=== PATIENT | male | born 1940 | race Caucasian/White ===

== ENCOUNTER → 2016-12-20 | Outpatient (CLI) | payer BC ==
[~2016-12-20] MED LIST: ASCO500T16 PO; ASPI81TA28 PO; ATEN50TA8 PO; CHOL400C7 PO; CYAN100T6 PO; HYDR-3419 PO
[2016-12-20 11:17] LABS: ALT/SGPT 29 U/L (12-78); BASO % 0.3 %; BASO ABS # 0.02 K/uL (0-0.2); BLOOD UREA NITROGEN 15 mg/dl (7-18); BUN/CREATININE RATIO 16.8 (10-20); CARBON DIOXIDE 25 mmol/L (21-32); CHLORIDE 109 mmol/L (98-107); CHOLESTEROL 181 mg/dl (0-200); COMPLETE YES; CREATININE 0.91 mg/dl (0.60-1.40); EOS % 1.6 %; GLUCOSE 102 mg/dl (70-99); HEMATOCRIT 42.9 % (42-52); IG% 0.3 %; LYMPH % 24.7 %; MEAN CELL VOLUME 90.9 fL (80-100); MEAN CORPUSCULAR HEMOGLOBIN 31.4 pg (25-34); MEAN CORPUSCULAR HGB CONC 34.5 g/dl (32-36); MEAN PLATELET VOLUME 9.8 fL (7.4-10.4); MONO % 9.8 %; NEUT % 63.3 %; PLATELET COUNT 202 K/uL (130-400); POTASSIUM 4.3 mmol/L (3.5-5.1); RED BLOOD COUNT 4.72 M/uL (4.7-6.1); SODIUM 141 mmol/L (136-145); WHITE BLOOD COUNT 7.28 K/uL (4.8-10.8)
[2016-12-20 11:21] LABS: ALB/GLOB RATIO 1.2 (0.9-2); ALKALINE PHOSPHATASE 79 U/L (45-117); AST/SGOT 17 U/L (15-37); CHOLESTEROL/HDL RATIO 3.5; HDL CHOLESTEROL 51 mg/dl; LDL CHOLESTEROL CALCULATED 92 mg/dl; TRIGLYCERIDES 191 mg/dl (0-150); VERY LOW DENSITY LIPOPROT CALC 38 mg/dl
== END | disposition home or self-care (01) ==
LOC: C.LABBC 08:59
PROVIDERS: ATTEND Family Medicine
DX: I10 Essential (primary) hypertension (principal); E78.5 Hyperlipidemia, unspecified; Z13.0 Encounter for screening for diseases of the blood and blood-forming organs and certain disorders involving the immune mechanism

== ENCOUNTER 2022-09-29 08:03 | Inpatient (IN) ==
--- NOTE | 2022-09-29 08:33 | Emergency Department Note ---
History of Present Illness General Chief complaint: TIA Symptoms Stated complaint: POSSIBLE MINI STROKE Time Seen by Provider: 09/29/22 08:14 Source: patient and family ( who is at the bedside) Mode of arrival: ambulatory Limitations: no limitations History of Present Illness This patient is an 81-year-old male who comes in after having episode yesterday morning where he felt a little dizzy and woozy he said he is he had a mild heada medardo his hearing and vision felt off it last about 30 minutes it was both eyes. He had no focal numbness or weakness. It occurred after he stood up. He feels fine since then but his was concerned so she brought him in here today. He had no chest pain or shortness of breath he has had no recurrence of symptoms. No trouble walking or speaking. No history of any similar. he is on no blood t hinners no blood or melena in his stool Home Medications Medication Instructions Recorded Confirmed Type ASCORBIC ACID 500 mg PO DAILY #0 tabs 09/12/13 History ASPIRIN (ASPIRIN EC) 81 mg PO DAILY ##0 09/12/13 09/29/22 History Atenolol (Tenormin) 50 mg PO DAILY #0 tabs 09/12/13 09/29/22 History CHOLECALCIFEROL (VITAMIN D 400 IU) 400 inter.unit PO DAILY #0 caps 09/12/13 History CYANOCOBALAMIN (VITAMIN B12 100 100 mcg PO DAILY #0 tabs 09/12/13 History MCG) Hydrocodon/Acetaminophen 5MG/300MG 1 - 2 tabs PO Q4H PRN Pain #30 tabs 09/12/13 Rx (VICODIN (5MG/300MG)) latanoprost 0.005 % eye drops 1 drp ophthalmic (eye) DAILY 09/29/22 09/29/22 History glaucoma lisinopril 10 mg tablet 10 mg PO DAILY 09/29/22 09/29/22 History Allergies Allergy/AdvReac Type Severity Reaction Status Date / Time No Known Allergies Allergy Unverified 09/12/13 07:20 Past Med/Surg History Medical History (Updated 09/29/22 @ 15:04 by Richard Menendez MD) Basal cell carcinoma Cataract Facial swelling Kidney stone Periapical abscess Social History Smoking Status: Former smoker Preferred Language: Tuvaluan Feels Safe at Home: Yes Immunizations: Past medical history he is very healthy he does take atenolol for hypertension denies history of cardiac disease diabetes or stroke/TIA Social historydoes not smoke. He is followed by Dr. Chu Review of Systems A total of 10 systems reviewed and were otherwise negative Physical Exam Vital Signs Vital Signs - 24 hr 09/29/22 08:05 09/29/22 09:00 09/29/22 09:00 Temperature 36.2 C L Temperature Source Temporal Artery Scan Pulse Rate 58 L 46 L Pulse Rate from SpO2 Sensor 50 L Respiratory Rate 16 14 Respiratory Depth Normal Blood Pressure 200/88 H 147/89 H Blood Pressure Mean 125 108 Blood Pressure Position Sitting Pulse Oximetry 97 97 Oxygen Delivery Method Room Air Sepsis Recent Fever Within 48 Hours No Sepsis New/Unexplained Change in Mental Status No Sepsis Action Taken by Nursing No Action Required 09/29/22 10:53 09/29/22 10:54 09/29/22 10:54 Temperature Temperature Source Pulse Rate 64 51 L Pulse Rate from SpO2 Sensor 58 L 51 L Respiratory Rate 23 16 Respiratory Depth Blood Pressure 177/90 H Blood Pressure Mean 119 Blood Pressure Position Pulse Oximetry 96 97 Oxygen Delivery Method Sepsis Recent Fever Within 48 Hours Sepsis New/Unexplained Change in Mental Status Sepsis Action Taken by Nursing 09/29/22 11:00 09/29/22 11:00 09/29/22 11:30 Temperature Temperature Source Pulse Rate 50 L Pulse Rate from SpO2 Sensor 51 L Respiratory Rate 16 Respiratory Depth Blood Pressure 152/80 H 142/76 H Blood Pressure Mean 104 98 Blood Pressure Position Pulse Oximetry 99 Oxygen Delivery Method Sepsis Recent Fever Within 48 Hours Sepsis New/Unexplained Change in Mental Status Sepsis Action Taken by Nursing 09/29/22 11:30 09/29/22 12:01 09/29/22 12:01 Temperature Temperature Source Pulse Rate 49 L 51 L Pulse Rate from SpO2 Sensor 49 L 51 L Respiratory Rate 13 16 Respiratory Depth Blood Pressure 179/83 H Blood Pressure Mean 115 Blood Pressure Position Pulse Oximetry 98 98 Oxygen Delivery Method Sepsis Recent Fever Within 48 Hours Sepsis New/Unexplained Change in Mental Status Sepsis Action Taken by Nursing General: Well developed well nourished older male who appears younger than stated age and in no acute distress, breathing comfortably on room air. Normal s peech HEENT: Normal cephalic atraumatic. Pupils are equal round and reactive to light. Extraocular movements are intact. Oropharynx is pink with moist mucous membranes. No swelling of the mouth lips or tongue. Neck: Supple with a midline trachea. No meningeal signs or stiffness, no JVD or bruits. No Stridor. Chest: Clear to auscultation bilaterally. No wheezes or rhonchi. No increased work of breathing. Heart: Regular rate and rhythm without murmurs or gallops. Abdomen: Soft nontender, nondistended without rebound guarding or rigidity. Extremities: No cyanosis clubbing or edema. No calf tenderness or assymetry Spine/Back. Non tender to palpation. No CVA tenderness Skin: Good turgor without rashes. Neurologic exam: Cranial nerves two through 12 are intact. Motor and sensation are intact and symmetrical throughout. Course Administered Medications Discontinued Medications Aspirin (Aspirin 81 Mg Ectab) 162 mg PO NOW STA Stop: 09/29/22 12:57 Last Admin: 09/29/22 13:06 Dose: 162 mg Documented By: JILL Clopidogrel Bisulfate (Clopidogrel Bisulfate 300 Mg Tab) 300 mg PO NOW ONE Stop: 09/29/22 12:29 Last Admin: 09/29/22 12:42 Dose: 300 mg Documented By: JILL Ioversol (Optiray 350 100ml) 118 ml IV ONCE ONE Stop: 09/29/22 11:04 Last Admin: 09/29/22 11:03 Dose: 118 ml Documented By: MABEL Medical Decision Making Differential Diagnosis TIA, vasovagal episode, arrhythmia, electrolyte or metabolic abnormality, central neurologic process, anemia, infection, vertigo, dizziness Medical Records Attestation: I reviewed the patient's medical records. Home Medications Current Medication List: was personally reviewed by me Laboratory Data Attestation: I reviewed the patient's lab results. Result diagrams: 09/29/22 08:49 09/29/22 08:49 Lab Results 09/29/22 09/29/22 09/29/22 Range/Units 08:49 08:49 08:49 WBC 7.65 (4.8-10.8) K/ul RBC 4.75 (4.63-6.08) M/uL Hgb 14.3 (14.0-18.0) g/dl Hct 43.0 (40.1-51.0) % MCV 90.5 (80.0-100.0) fL MCH 30.1 (25.0-34.0) pg MCHC 33.3 (32.0-36.0) g/dL RDW Std Deviation 43.8 (36.4-46.3) fL RDW Coeff of Leslie 13.2 (11.5-14.5) % Plt Count 225 (130-400) K/uL MPV 10.2 (9.4-12.4) fL Immature Gran % (Auto) 0.1 % Neut % (Auto) 66.6 % Lymph % (Auto) 23.9 % [place] % (Auto) 7.6 % Eos % (Auto) 1.3 % Baso % (Auto) 0.5 % Neut # (Auto) 5.09 (1.4-6.5) K/uL Lymph # (Auto) 1.83 (1.2-3.4) K/uL [place] # (Auto) 0.58 (0.24-0.82) K/uL Eos # (Auto) 0.10 (0-0.50) K/uL Baso # (Auto) 0.04 (0-0.2) K/uL Immature Gran # (Auto) 0.01 (0.00-0.02) K/uL PT 10.6 (9.0-12.0) Seconds INR 1.0 (0.9-1.1) APTT 27.9 (21.0-31.0) Seconds PTT Ratio 1.0 Sodium 139 (136-145) mmol/L Potassium 4.8 (3.5-5.1) mmol/L Chloride 106 (98-107) mmol/L Carbon Dioxide 27 (21-32) mmol/L Anion Gap 6 (3-11) BUN 19 (6-23) mg/dl Creatinine 0.93 (0.6-1.4) mg/dl Est Cr Clr Drug Dosing Not Reportable Est GFR ( Amer) 89.5 ml/min Est GFR (Non-Af Amer) 77.3 ml/min BUN/Creatinine Ratio 20.4 H (10-20) Glucose 104 H (70-99(Fasting)) mg/dl Calcium 9.3 (8.5-10.1) mg/dl Magnesium 2.2 (1.7-2.4) mg/dl Total Bilirubin 0.6 (0.2-1.0) mg/dl AST 20 (13-39) U/L ALT 17 (7-52) U/L Alkaline Phosphatase 54 (34-104) U/L Troponin I High Sens 3.4 (0-20) pg/ml Total Protein 6.9 (6.0-8.3) gm/dl Albumin 4.0 (3.4-5.0) gm/dl Globulin 2.9 (2.5-4.0) gm/dl Albumin/Globulin Ratio 1.4 (0.9-2) SARS-CoV-2, RNA, NAAT (NEGATIVE) 09/29/22 Range/Units 08:49 WBC (4.8-10.8) K/ul RBC (4.63-6.08) M/uL Hgb (14.0-18.0) g/dl Hct (40.1-51.0) % MCV (80.0-100.0) fL MCH (25.0-34.0) pg MCHC (32.0-36.0) g/dL RDW Std Deviation (36.4-46.3) fL RDW Coeff of Leslie (11.5-14.5) % Plt Count (130-400) K/uL MPV (9.4-12.4) fL Immature Gran % (Auto) % Neut % (Auto) % Lymph % (Auto) % [place] % (Auto) % Eos % (Auto) % Baso % (Auto) % Neut # (Auto) (1.4-6.5) K/uL Lymph # (Auto) (1.2-3.4) K/uL [place] # (Auto) (0.24-0.82) K/uL Eos # (Auto) (0-0.50) K/uL Baso # (Auto) (0-0.2) K/uL Immature Gran # (Auto) (0.00-0.02) K/uL PT (9.0-12.0) Seconds INR (0.9-1.1) APTT (21.0-31.0) Seconds PTT Ratio Sodium (136-145) mmol/L Potassium (3.5-5.1) mmol/L Chloride (98-107) mmol/L Carbon Dioxide (21-32) mmol/L Anion Gap (3-11) BUN (6-23) mg/dl Creatinine (0.6-1.4) mg/dl Est Cr Clr Drug Dosing Est GFR ( Amer) ml/min Est GFR (Non-Af Amer) ml/min BUN/Creatinine Ratio (10-20) Glucose (70-99(Fasting)) mg/dl Calcium (8.5-10.1) mg/dl Magnesium (1.7-2.4) mg/dl Total Bilirubin (0.2-1.0) mg/dl AST (13-39) U/L ALT (7-52) U/L Alkaline Phosphatase (34-104) U/L Troponin I High Sens (0-20) pg/ml Total Protein (6.0-8.3) gm/dl Albumin (3.4-5.0) gm/dl Globulin (2.5-4.0) gm/dl Albumin/Globulin Ratio (0.9-2) SARS-CoV-2, RNA, NAAT NEGATIVE (NEGATIVE) Imaging Data Attestation: I personally reviewed and interpreted this imaging study as follows: My Impression: Chest x-ray Head CT Radiologist's Impression: Head CT 09/29/22 08:25 CT OF THE HEAD WITHOUT CONTRAST CLINICAL HISTORY: neuro deficit, acute stroke suspected COMPARISON STUDY: No previous studies for comparison. TECHNIQUE: Helical axial images of the head were obtained without IV contrast. Automated exposure control was utilized for the study. A dose lowering technique was utilized adhering to the principles of ALARA. FINDINGS: No acute intracranial hemorrhage, midline shift or mass effect is present. Mild white matter hypodensities favor small vessel disease. The ventricular system is unremarkable. The basal cisterns are patent. No extra- axial collections are present. There are no findings to suggest acute dural sinus thrombosis or acute territorial infarct. No significant calvarial abnormalities are present. Visualized portions of the sinuses and mastoid air cells are clear. IMPRESSION: No acute intracranial findings. ACT 112: Negative or not required by law. Electronically signed by: Biju Jeff M.D. 09/29/2022 10:55 AM Head CTA 09/29/22 08:25 CTA ANGIOGRAPHY OF THE HEAD CLINICAL HISTORY: neuro deficit, acute stroke suspected COMPARISON STUDY: No previous studies for comparison. TECHNIQUE: Helical axial images of the head were obtained following uneventful intravenous administration of Optiray. Sagittal and coronal reconstructions were viewed as well as maximal intensity projections on an independent 3-D workstation. Automated exposure control was utilized for the study. A dose lowering technique was utilized adhering to the principles of ALARA. CT DOSE: 1226.79 mGy.cm FINDINGS: A linear filling defect is noted within the distal cervical left internal carotid artery, just proximal to the skull base. This is shown on axial image 24 of 261. There is mild dilatation of the internal carotid artery at this level, measuring 7 mm in caliber. No intracranial aneurysm. The bilateral M1, M2, A1 and A2 segments are patent. There is moderate plaque within the right cavernous carotid and mild plaque within the left cavernous carotid. There is no stenosis. No central vessel occlusion is identified. Severe multifocal stenoses within the intracranial portion of left vertebral artery are noted. There are severe stenoses of the left P2 segment. No abrupt vessel cut off is identified. IMPRESSION: 1. No intracranial aneurysm. No central vessel occlusion. 2. Linear filling defect suggestive of a short segment age indeterminate dissection of the distal cervical left internal carotid artery. Associated mild dilatation of the distal cervical left ICA. 3. Severe multifocal stenoses within the intracranial left vertebral artery and the left P2 segment. ACT 112: Negative or not required by law. Electronically signed by: Biju Jeff M.D. 09/29/2022 11:23 AM Neck CTA 09/29/22 08:25 CT ANGIOGRAPHY OF THE NECK WITH CONTRAST CLINICAL HISTORY: neuro deficit, acute stroke suspected COMPARISON STUDY: CT of the neck September 12, 2013. Technique: CT angiography of the carotid and vertebral arteries was obtained using Optiray and 3D reconstruction on an independent workstation. NASCET sixto latham was utilized. Automated exposure control was utilized for the study. A dose lowering technique was utilized adhering to the principles of ALARA. Findings: Visualized portions of the lung apices are unremarkable. There is no cervical lymphadenopathy. No cervical spine fracture is present. The bilateral common carotid arteries are patent. There is mild stenosis of the proximal right internal carotid artery due to moderate noncalcified plaque. Vessel measures 3.3 mm at site of narrowing and 4.9 mm distally. There is mild plaque within the proximal left internal carotid artery without stenosis. Linear filling defect within the distal cervical left internal carotid artery on image 331 is noted. This favors a short segment dissection. This is new since prior CT. There is mild dilatation of the distal left ICA at this level, measuring 6 cm in caliber. The right vertebral artery is patent. There is occlusion of the proximal left vertebral artery with trace reconstitution. Minimal flow is noted within the mid to distal cervical left vertebral artery. This finding is new since exam September 12, 2013. IMPRESSION: 1. Occlusion of the proximal left vertebral artery with trace reconstitution. This finding is new since neck CT of September 12, 2013. This could be due to atherosclerosis or an age-indeterminate dissection. 2. Age indeterminate short segment dissection of the distal left internal carotid artery. Mild dilatation of the distal left ICA, measuring 6 mm, at this level. 3. Mild (30%) stenosis of the proximal right internal carotid artery. Moderate plaque within the proximal right ICA. ACT 112: Negative or not required by law. Electronically signed by: Biju Jeff M.D. 09/29/2022 11:17 AM ECG Data Attestation: I personally reviewed and interpreted this ECG as follows: Indication: + weakness Rate (beats per minute): 61 Rhythm: + normal sinus ECG Intervals/blocks: + First degree AV block, + Normal QRS and + Normal QT ECG [place]: + Normal ECG ST segments: + Normal ST segments ECG Findings: no PACs or no PVCs Comparison ECG Date: no prior available MDM Narrative This patient comes in as described above he was placed on a compliance monitor in room C7. Is here for treatment and evaluation of an episode yesterday where he felt dizzy. He has had no symptoms since then. His vital signs are stable he has a normal neurologic exam at present he had no chest pain or shortness of breath. His EKG does not suggest significant arrhythmia or ischemic changes. I did an extensive cardiac/stroke work-up to evaluate him which included CAT scan of the head and neck including angiography. He also had a chest x-ray EKG and COVID test he was reassessed frequently. His EKG does not suggest significant arrhythmia or ischemia. There is no old available for comparison. His blood work was all unremarkable he has nothing to suggest electrolyte or metabolic abnormalities. Troponin was not elevated. COVID testing was negative. He has nothing to suggest infection. His CAT scan of his head is unremarkable. CT angiography of the neck and head do should show some age-indeterminate abnormalities. He does have a small segment left ICA dissection as well as a left vertebral artery occlusion or dissection. The right vertebral artery is open. The patient is asymptomatic at present. I did discuss the case with Dr. Bowens, who is the [place] stroke neurologist. He recommends antiplatelets with a dual aspirin and Plavix. He does not recommend anticoagulation. He does not feel that there is anything that they would do differently at [place]. He agrees with admitting the patient to have a further neurologic work-up. I have consulted Dr. Castellon from [facility] and they we will see the patient in the ER and start the patient on Plavix as well as aspirin. Continuous compliance monitor: Orders placed in EMR for continuous cardiac monitoring. Upon interpretation patient noted to be normal sinus rhythm with a rate of 60 Impression & Plan Internal carotid artery dissection, Dizziness, Occlusion of left vertebral art evie, Lab test negative for COVID-19 virus Discharge Plan Visit Data Chief Complaint: TIA Symptoms Stated Complaint: POSSIBLE MINI STROKE ED Provider: Richard Menendez Discharge Problem: Internal carotid artery dissection, Dizziness, Occlusion of left vertebral artery, Lab test negative for COVID-19 virus Discharge Instructions Interventions: ED Discharge Assessment Last Done: 09/29/22 14:34
[2022-09-29 09:05] LABS: Basophils # (auto) 0.04 K/uL (0-0.2); Basophils % (auto) 0.5 %; Eosinophils % (auto) 1.3 %; Hemoglobin 14.3 g/dl (14.0-18.0); Immature Granulocytes # (auto) 0.01 K/uL (0.00-0.02); Immature Granulocytes % (auto) 0.1 %; Lymphocytes # (auto) 1.83 K/uL (1.2-3.4); Lymphocytes % (auto) 23.9 %; Mean Corpuscular Hemoglobin 30.1 pg (25.0-34.0); Mean Corpuscular Hgb Conc 33.3 g/dL (32.0-36.0); Mean Corpuscular Volume 90.5 fL (80.0-100.0); Mean Platelet Volume 10.2 fL (9.4-12.4); Monocytes # (auto) 0.58 K/uL (0.24-0.82); Monocytes % (auto) 7.6 %; Neutrophils # (auto) 5.09 K/uL (1.4-6.5); Neutrophils % (auto) 66.6 %; Platelet Count 225 K/uL (130-400); RDW Coefficient of Variation 13.2 % (11.5-14.5); RDW Standard Deviation 43.8 fL (36.4-46.3); Red Blood Count 4.75 M/uL (4.63-6.08); White Blood Count 7.65 K/ul (4.8-10.8)
[2022-09-29 09:16] LABS: Partial Thromboplastin Time 27.9 Seconds (21.0-31.0); Prothrombin Time 10.6 Seconds (9.0-12.0)
[2022-09-29 09:38] LABS: Alanine Aminotransferase 17 U/L (7-52); Albumin Globulin Ratio 1.4 (0.9-2); Alkaline Phosphatase 54 U/L (34-104); Anion Gap 6 (3-11); Aspartate Aminotransferase 20 U/L (13-39); BUN Creatinine Ratio 20.4 (10-20); Bilirubin,Total 0.6 mg/dl (0.2-1.0); Blood Urea Nitrogen 19 mg/dl (6-23); Calcium 9.3 mg/dl (8.5-10.1); Carbon Dioxide 27 mmol/L (21-32); Chloride 106 mmol/L (98-107); Est GFR (African American) 89.5 ml/min; Est GFR (Non-African American) 77.3 ml/min; Globulin 2.9 gm/dl (2.5-4.0); Glucose 104 mg/dl (70-99(Fasting)); Magnesium 2.2 mg/dl (1.7-2.4); Potassium 4.8 mmol/L (3.5-5.1); Sodium 139 mmol/L (136-145); Total Protein 6.9 gm/dl (6.0-8.3)
[2022-09-29 09:39] LABS: Troponin I High Sensitivity 3.4 pg/ml (0-20)
[2022-09-29] MEDS ORDERED: OPTIRAY 350 100ml IV ONE (11:03)
--- NOTE | 2022-09-29 11:06 | CT Scan Report ---
CT OF THE HEAD WITHOUT CONTRAST CLINICAL HISTORY: neuro deficit, acute stroke suspected COMPARISON STUDY: No previous studies for comparison. TECHNIQUE: Helical axial images of the head were obtained without IV contrast. Automated exposure con trol was utilized for the study. A dose lowering technique was utilized adhering to the principles o f ALARA. FINDINGS: No acute intracranial hemorrhage, midline shift or mass effect is present. Mild white matte r hypodensities favor small vessel disease. The ventricular system is unremarkable. The basal cistern s are patent. No extra-axial collections are present. There are no findings to suggest acute dural si nus thrombosis or acute territorial infarct. No significant calvarial abnormalities are present. Visu alized portions of the sinuses and mastoid air cells are clear. IMPRESSION: No acute intracranial findings. ACT 112: Negative or not required by law. Electronically signed by: Biju Jeff M.D. 09/29/2022 10:55 AM
--- NOTE | 2022-09-29 11:19 | CT Scan Report ---
CT ANGIOGRAPHY OF THE NECK WITH CONTRAST CLINICAL HISTORY: neuro deficit, acute stroke suspected COMPARISON STUDY: CT of the neck September 12, 2013. Technique: CT angiography of the carotid and vertebral arteries was obtained using Optiray and 3D rec onstruction on an independent workstation. NASCET criteria was utilized. Automated exposure control was utilized for the study. A dose lowering technique was utilized adhering to the principles of ALA RA. Findings: Visualized portions of the lung apices are unremarkable. There is no cervical lymphadenopat hy. No cervical spine fracture is present. The bilateral common carotid arteries are patent. There is mild stenosis of the proximal right internal carotid artery due to moderate noncalcified plaque. Ves quan measures 3.3 mm at site of narrowing and 4.9 mm distally. There is mild plaque within the proxima l left internal carotid artery without stenosis. Linear filling defect within the distal cervical lef t internal carotid artery on image 331 is noted. This favors a short segment dissection. This is new since prior CT. There is mild dilatation of the distal left ICA at this level, measuring 6 cm in nathan anam. The right vertebral artery is patent. There is occlusion of the proximal left vertebral artery w ith trace reconstitution. Minimal flow is noted within the mid to distal cervical left vertebral lucretia ry. This finding is new since exam September 12, 2013. IMPRESSION: 1. Occlusion of the proximal left vertebral artery with trace reconstitution. This finding is new sin ce neck CT of September 12, 2013. This could be due to atherosclerosis or an age-indeterminate dissecti on. 2. Age indeterminate short segment dissection of the distal left internal carotid artery. Mild dilata tion of the distal left ICA, measuring 6 mm, at this level. 3. Mild (30%) stenosis of the proximal right internal carotid artery. Moderate plaque within the prox imal right ICA. ACT 112: Negative or not required by law. Electronically signed by: Biju Jeff M.D. 09/29/2022 11:17 AM
--- NOTE | 2022-09-29 11:25 | CT Scan Report ---
CTA ANGIOGRAPHY OF THE HEAD CLINICAL HISTORY: neuro deficit, acute stroke suspected COMPARISON STUDY: No previous studies for comparison. TECHNIQUE: Helical axial images of the head were obtained following uneventful intravenous administr ation of Optiray. Sagittal and coronal reconstructions were viewed as well as maximal intensity proje ctions on an independent 3-D workstation. Automated exposure control was utilized for the study. A dose lowering technique was utilized adhering to the principles of ALARA. CT DOSE: 1226.79 mGy.cm FINDINGS: A linear filling defect is noted within the distal cervical left internal carotid artery, j ust proximal to the skull base. This is shown on axial image 24 of 261. There is mild dilatation of t he internal carotid artery at this level, measuring 7 mm in caliber. No intracranial aneurysm. The bi lateral M1, M2, A1 and A2 segments are patent. There is moderate plaque within the right cavernous ca rotid and mild plaque within the left cavernous carotid. There is no stenosis. No central vessel occl usion is identified. Severe multifocal stenoses within the intracranial portion of left vertebral art evie are noted. There are severe stenoses of the left P2 segment. No abrupt vessel cut off is identifi ed. IMPRESSION: 1. No intracranial aneurysm. No central vessel occlusion. 2. Linear filling defect suggestive of a short segment age indeterminate dissection of the distal cer vical left internal carotid artery. Associated mild dilatation of the distal cervical left ICA. 3. Severe multifocal stenoses within the intracranial left vertebral artery and the left P2 segment. ACT 112: Negative or not required by law. Electronically signed by: Biju Jeff M.D. 09/29/2022 11:23 AM
--- NOTE | 2022-09-29 12:08 | History & Physical Report ---
Date of Service September 29, 2022 Assessment & Plan (1) Internal carotid artery dissection: Plan: - 30-minute episode yesterday 09/28 of dizziness/lightheadedness and double vision and hearing loss, resolved without recurrence. -Head/neck CTA: Linear filling defect suggestive of a short segment age indeterminate dissection of the distal cervical left internal carotid artery. Associated mild dilatation of the distal cervical left ICA. Severe multifocal stenoses within the intracranial left vertebral artery and the left P2 segment. - Per [facility] telestroke recommendations, will initiate DAPT with aspirin and Plavix, with loading dose of both today. - MRI for further characterization of dissection. - Vascular surgery consulted while patient is admitted, appreciate their recommendations and assistance with this patient. (2) HTN (hypertension): Plan: - Continue atenolol, lisinopril. Took both this AM. Plan - Admit to PCU. - SCDs for VTE ppx. - Conditional Code-- NO artificial airway/intubation but agreeable to other standarda ACL protol to include CPR, defibrillation, pressors, medications for resuscitation History of Present Illness Chief Complaint: 30 minutes of lightheadedness and b/l blurred vision yesterday Primary Care Provider: NO PCP Zoran Negro is an 81-year-old male with a past medical history significant for hypertension, basal cell carcinoma, and nephrolithiasis who is presenting today after an episode of dizziness yesterday. Yesterday after standing up he felt a little lightheaded and "dizzy and woozy "with a mild headache and noticed that his hearing and vision seem to be diminished. This lasted for about 30 minutes befor resolving on its own. Vision was blurred in the both eyes, no black spots. No focal numbness or weakness, nausea, vomiting, or speech difficulties. Again, this resolved after 30 minutes and he is felt fine since yesterday's event is presenting today for further evaluation. Does not have a history of strokes, vision changes, headaches. Not taking any blood thinners, no recent falls. On presentation today he was initially hypertensive at 266 gradually, down since arrival without any interventions. He is bradycardic to 4050s. Head/Neck CTA showed occlusion of the proximal left vertebral artery with trace reconstitution and age-indeterminate short segment dissection of the distal left internal carotid artery and mild elevation of the left ICA measuring 6 mm liters at this level and 30% stenosis of the proximal right ICA and moderate plaque within the proximal right ICA. Case discussed with [facility], recommending dual antiplatelet therapy and MRI for further assessment. Allergies Allergy/AdvReac Type Severity Reaction Status Date / Time No Known Allergies Allergy Unverified 09/12/13 07:20 Home Medications Medication Instructions Recorded Confirmed Type ASCORBIC ACID 500 mg PO DAILY #0 tabs 09/12/13 History ASPIRIN (ASPIRIN EC) 81 mg PO DAILY ##0 09/12/13 09/29/22 History Atenolol (Tenormin) 50 mg PO DAILY #0 tabs 09/12/13 09/29/22 History CHOLECALCIFEROL (VITAMIN D 400 IU) 400 inter.unit PO DAILY #0 caps 09/12/13 History CYANOCOBALAMIN (VITAMIN B12 100 100 mcg PO DAILY #0 tabs 09/12/13 History MCG) Hydrocodon/Acetaminophen 5MG/300MG 1 - 2 tabs PO Q4H PRN Pain #30 tabs 09/12/13 Rx (VICODIN (5MG/300MG)) latanoprost 0.005 % eye drops 1 drp ophthalmic (eye) DAILY 09/29/22 09/29/22 History glaucoma lisinopril 10 mg tablet 10 mg PO DAILY 09/29/22 09/29/22 History clopidogrel 75 mg tablet 75 mg PO QAM #21 tabs 09/30/22 Rx Past Med/Surg History Medical History (Updated 09/29/22 @ 15:04 by Richard Menendez MD) Basal cell carcinoma Cataract Facial swelling Kidney stone Periapical abscess Social History Smoking Status: Former smoker Hx Alcohol Use: No Hx Substance Use: No Preferred Language: Danish Communication Ability: Effective 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 Beliefs That Will Affect Care: None Current Living Situation: Spouse Feels Safe at Home: Yes Assistive Devices: None Review of Systems Review of Systems: Constitutional: No fever/chills, weakness, fatigue, myalgias, anorexia, night sweats Eyes: No diplopia, no worsening or blurred vision ENT: normal hearing, no trouble swallowing Respiratory: No cough, sputum, dyspnea at rest or on exertion Cardiovascular: No chest pain, tightness or palpitations Abdomen: No pain, nausea, vomiting, diarrhea or constipation : Denies dysuria, hematuria, increased urgency/frequency, urinary retention Musculoskeletal: No joint pain, calf pain, swelling Neurologic: No weakness, numbness/tingling, or balance problems Psychiatric: No anxiety or depression Skin: No rash or itch Physical Exam Physical Exam: General: awake, alert, no apparent distress Head: Normocephalic, atraumatic ENT: PERRL, EOMI, no pharyngeal exudate, mucous membranes moist Chest: Clear to auscultation, on room air, no adventitious breath sounds Cardiac: Regular rate and rhythm, no murmur, no JVD, normal peripheral pulses, good capillary refill Abdominal: NABS x 4 quadrants, soft, nontender to palpation, no rebound, guarding or tenderness Extremities: Normal inspection, no peripheral edema or erythema, calfs nontender to palpation Psych: Normal mood and affect Neuro: AAO x 3, strength intact bilaterally and rated 5/5, no motor deficits, speech is clear, no peripheral sensory deficits Skin: no rash or erythema Results & Data Results & Data ([facility]) Vital Signs (Past 12 Hours) Vital Signs Temp Pulse Resp BP Pulse Ox O2 Del Method 09/29/22 11:30 49 L 13 98 09/29/22 11:30 142/76 H 09/29/22 11:00 50 L 16 99 09/29/22 11:00 152/80 H 09/29/22 10:54 51 L 16 97 09/29/22 10:54 177/90 H 09/29/22 10:53 64 23 96 09/29/22 09:00 46 L 14 97 09/29/22 09:00 147/89 H 09/29/22 08:05 36.2 C L 58 L 16 200/88 H 97 Room Air Laboratory Results Abnormal lab results 09/29/22 Range/Units 08:49 BUN/Creatinine Ratio 20.4 H (10-20) Glucose 104 H (70-99(Fasting)) mg/dl Diagnostic Findings Head CT 09/29/22 08:25 CT OF THE HEAD WITHOUT CONTRAST CLINICAL HISTORY: neuro deficit, acute stroke suspected COMPARISON STUDY: No previous studies for comparison. TECHNIQUE: Helical axial images of the head were obtained without IV contrast. Automated exposure control was utilized for the study. A dose lowering technique was utilized adhering to the principles of ALARA. FINDINGS: No acute intracranial hemorrhage, midline shift or mass effect is present. Mild white matter hypodensities favor small vessel disease. The ventricular system is unremarkable. The basal cisterns are patent. No extra-a xial collections are present. There are no findings to suggest acute dural sinus thrombosis or acute territorial infarct. No significant calvarial abnormalities are present. Visualized portions of the sinuses and mastoid air cells are clear. IMPRESSION: No acute intracranial findings. ACT 112: Negative or not required by law. Electronically signed by: Biju Jeff M.D. 09/29/2022 10:55 AM Head CTA 09/29/22 08:25 CTA ANGIOGRAPHY OF THE HEAD CLINICAL HISTORY: neuro deficit, acute stroke suspected COMPARISON STUDY: No previous studies for comparison. TECHNIQUE: Helical axial images of the head were obtained following uneventful intravenous administration of Optiray. Sagittal and coronal reconstructions were viewed as well as maximal intensity projections on an independent 3-D workstation. Automated exposure control was utilized for the study. A dose lowering technique was utilized adhering to the principles of ALARA. CT DOSE: 1226.79 mGy.cm FINDINGS: A linear filling defect is noted within the distal cervical left internal carotid artery, just proximal to the skull base. This is shown on axial image 24 of 261. There is mild dilatation of the internal carotid artery at this level, measuring 7 mm in caliber. No intracranial aneurysm. The bilateral M1, M2, A1 and A2 segments are patent. There is moderate plaque within the right cavernous carotid and mild plaque within the left cavernous carotid. There is no stenosis. No central vessel occlusion is identified. Severe multifocal stenoses within the intracranial portion of left vertebral artery are noted. There are severe stenoses of the left P2 segment. No abrupt vessel cut off is identified. IMPRESSION: 1. No intracranial aneurysm. No central vessel occlusion. 2. Linear filling defect suggestive of a short segment age indeterminate dissection of the distal cervical left internal carotid artery. Associated mild dilatation of the distal cervical left ICA. 3. Severe multifocal stenoses within the intracranial left vertebral artery and the left P2 segment. ACT 112: Negative or not required by law. Electronically signed by: Biju Jeff M.D. 09/29/2022 11:23 AM Neck CTA 09/29/22 08:25 CT ANGIOGRAPHY OF THE NECK WITH CONTRAST CLINICAL HISTORY: neuro deficit, acute stroke suspected COMPARISON STUDY: CT of the neck September 12, 2013. Technique: CT angiography of the carotid and vertebral arteries was obtained using Optiray and 3D reconstruction on an independent workstation. NASCET criteria was utilized. Automated exposure control was utilized for the study. A dose lowering technique was utilized adhering to the principles of ALARA. Findings: Visualized portions of the lung apices are unremarkable. There is no cervical lymphadenopathy. No cervical spine fracture is present. The bilateral common carotid arteries are patent. There is mild stenosis of the proximal right internal carotid artery due to moderate noncalcified plaque. Vessel measures 3.3 mm at site of narrowing and 4.9 mm distally. There is mild plaque within the proximal left internal carotid artery without stenosis. Linear filling defect within the distal cervical left internal carotid artery on image 331 is noted. This favors a short segment dissection. This is new since prior CT. There is mild dilatation of the distal left ICA at this level, measuring 6 cm in caliber. The right vertebral artery is patent. There is occlusion of the proximal left vertebral artery with trace reconstitution. Minimal flow is noted within the mid to distal cervical left vertebral artery. This finding is new since exam September 12, 2013. IMPRESSION: 1. Occlusion of the proximal left vertebral artery with trace reconstitution. This finding is new since neck CT of September 12, 2013. This could be due to atherosclerosis or an age-indeterminate dissection. 2. Age indeterminate short segment dissection of the distal left internal carotid artery. Mild dilatation of the distal left ICA, measuring 6 mm, at this level. 3. Mild (30%) stenosis of the proximal right internal carotid artery. Moderate plaque within the proximal right ICA. ACT 112: Negative or not required by law. Electronically signed by: Biju Jeff M.D. 09/29/2022 11:17 AM ECG Additional Comments: Sinus rhythm with 1st degree A-V block Low voltage QRS Borderline ECG No previous ECGs available. Code Status & VTE Plan Code Status - Conditional Code-- NO artificial airway/intubation but agreeable to other standard ACL protocol to include CPR, defibrillation, pressors, medications for resuscitation Supervising Physician Co-Signing Physician Notes Patient seen and examined, chart reviewed, case discussed with Silvia Chun PA-C and I agree with the assessment and plan as above except as otherwise noted Labs and images reviewed Zoran is a 81-year-old male with past medical history of hypertension who presented after an episode of dizziness/blurry vision. Has some lightheadedness when standing and blurry vision which resolved after half hour. No focal field cuts, no peripheral field cuts, was symmetrically blurry. Has not had similar symptoms previously. Did not pass out. No chest pain/chest pressure/shortness of breath. Was hypertensive on ER assessment which is subsequently improved without antihypertensives. CThead showed no evidence of stroke pathology, but CTA head/neck showed short segment possible dissection and left vertebral occlusion with reconstitution. Based on these findings [place] [facility] [place] recommended dual antiplatelet therapy and follow-up MRI. Anticoagulation was not recommended. At time of assessment patient is without vision changes, strength is symmetrically intact in upper and lower extremities, lungs are clear, heart rate is slightly bradycardic but with appropriate chronotropic response. On recheck and BP is elevated, recommend goal BP less than 180. Calcium channel blockers and beta-blockers deferred due to relative bradycardia, 1 dose of amlodipine ordered and continue monitoring. Otherwise agree with above MRI pending. PG Care Time/CCT Total # of Minutes Spent Total Time Spent with Patient: Total time spent is greater than 50% in coordination of care (as documented) at patient's floor/unit and/or counseling patient: Coding Level of Care Code 32482 Initial Inpt Care Lvl 3 Diagnoses Internal carotid artery dissection I77.71 HTN (hypertension) I10
[2022-09-29] MEDS ORDERED: CLOPIDOGREL BISULFATE 300 MG TAB PO ONE (12:28)
[2022-09-29] MEDS ORDERED: ASPIRIN 81 MG ECTAB PO STA (12:56)
--- NOTE | 2022-09-29 14:52 | Electrocardiogram Report ---
Test Reason : Blood Pressure : / mmHG Vent. Rate : 061 BPM Atrial Rate : 061 BPM P-R Int : 220 ms QRS Dur : 088 ms QT Int : 412 ms P-R-T Axes : 073 044 057 degrees QTc Int : 414 ms Sinus rhythm with 1st degree A-V block Low voltage QRS No previous ECGs available Confirmed by Daniel Ayala ([id number]) on 09/29/2022 2:52:01 PM Referred By: REFERRED SELF Confirmed By:Daniel Ayala
[2022-09-29] MEDS ORDERED: ALUMINUM/MAGNESIUM SUSP 30 ML UDC PO PRN (14:55)
[2022-09-29] MEDS ORDERED: ACETAMINOPHEN 325 MG TAB PO PRN (14:55)
[2022-09-29] MEDS ORDERED: POLYETHYLENE (MIRALAX) 17 GM PACK PO PRN (14:55)
[2022-09-29] MEDS ORDERED: ONDANSETRON INJ 2 MG/ML 2 ML VIAL IV PRN (14:55)
[2022-09-29] MEDS ORDERED: amLODIPine BESYLATE 5 MG TAB PO ONE (16:03)
[2022-09-30] MEDS ORDERED: GADOBUTROL 65ML VIAL IV ONE (00:17)
[2022-09-30 07:20] LABS: BUN Creatinine Ratio 18.3 (10-20); Calcium 8.5 mg/dl (8.5-10.1); Chol HDL Ratio 3.2 (0-5); Creatinine Clr Calc Pharmacy 76.6 ml/min; Est GFR (African American) 89.5 ml/min; Est GFR (Non-African American) 77.3 ml/min; Potassium 4.3 mmol/L (3.5-5.1)
[2022-09-30 07:24] LABS: Estimated Average Glucose 108 mg/dl; Hemoglobin A1C 5.4 % (4.5-5.6)
[2022-09-30] MEDS ORDERED: ASCORBIC ACID 500 MG TAB PO SCH (09:00)
[2022-09-30] MEDS ORDERED: CYANOCOBALAMIN (B-12) 100 MCG TABLET PO SCH (09:00)
[2022-09-30] MEDS ORDERED: CLOPIDOGREL BISULFATE 75 MG TAB PO SCH (09:00)
[2022-09-30] MEDS ORDERED: ASPIRIN 81 MG ECTAB PO SCH (09:00)
[2022-09-30] MEDS ORDERED: ATENOLOL 50 MG TABLET PO SCH (09:00)
[2022-09-30] MEDS ORDERED: CHOLECALCIFEROL 400 UNITS 10 MCG TAB PO SCH (09:00)
--- NOTE | 2022-09-30 10:14 | Magnetic Resonance Report ---
MR brain wo con, MR angio neck wo/w con CLINICAL HISTORY: left distal ICA dissection TECHNIQUE: Multiplanar and multisequence MR images of the brain were obtained without intravenous con trast. Angiographic MRI sequences of the brain were also obtained without contrast. Comparison: Comparison is made to CTA head and neck 09/29/2022 FINDINGS: No abnormal restricted diffusion is identified. Foci of T2 and FLAIR hyperintensity are noted in the paraventricular areas consistent with chronic small vessel ischemic disease. Ex vacuo ventriculomegal y and sulcal enlargement is noted compatible with diffuse encephalomalacia. No mass is seen. There is no mass effect or midline shift. There is no evidence of acute intraparenchymal hemorrhage. No extra axial fluid collections are seen. The corpus callosum, pituitary gland, and cerebellar tonsils appea r grossly unremarkable. Angiographic phase, there is again noted to be a linear filling defect suggestive of a short segment dissection of the distal cervical left internal carotid artery. The imaged portions of the paranasal sinuses, mastoid air cells, and orbits are unremarkable. IMPRESSION: Redemonstration of a short segment dissection of the distal cervical left internal carotid artery. No evidence of infarct is seen. ACT 112: Negative or not required by law. Electronically signed by: Robson Cline M.D. 09/30/2022 10:12 AM
--- NOTE | 2022-09-30 11:19 | XCELERA ---
[id number]
--- NOTE | 2022-09-30 12:20 | Magnetic Resonance Report ---
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 COMPARISON: CTA neck same day, CT soft tissue neck 09/12/2013 TECHNIQUE: MRA of the head was obtained without the use of IV contrast utilizing 3-D [id number] s equencing with MIP reformats. All measurements were obtained according to NASCET criteria. FINDINGS: Age-indeterminate short segment dissection involving the distal cervical segment of the left ICA is a gain noted on image 199. Mild dilation of the internal carotid artery measuring up to 6 mm at this le gareth is stable. The internal carotid arteries are otherwise unremarkable and patent. The middle and an terior cerebral arteries appear patent. The distal right vertebral artery is patent and normal. Multi focal high-grade stenoses of the V4 segment left vertebral artery and P2 segments of the left posteri or cerebral artery again noted. The basilar and right posterior superior arteries are patent. Age-related involutional changes of the brain parenchyma. IMPRESSION: 1. Short segment age-indeterminate dissection of the distal cervical segment left ICA with associated fusiform dilation measuring up to 6 mm. 2. Severe multifocal stenoses of the V4 segment left vertebral artery and P2 segment of the left post erior cerebral artery again noted. ACT 112: Negative or not required by law. The above report was generated using voice recognition software. It may contain grammatical, syntax o r spelling errors. Electronically signed by: Jones Greene M.D. 09/30/2022 12:19 PM
--- NOTE | 2022-09-30 15:30 | Neurology Consultation ---
Date of Consultation September 30, 2022 Assessment & Plan (1) Internal carotid artery dissection: Patient had a 30 to 40-minute spell 2 days ago, self-limited, of bilateral posterior head pain, and a sense of muffled hearing in both ears. The short time span, and bilateral nature of this event, suggest it was not due to either carotid dissection or vertebral dissection, if those are in fact even new. Angiography otherwise without explanation for his symptoms, surface echocardiogram likewise. It is difficult to know therefore whether either of these 2 vascular lesions is symptomatic, though he certainly does not have typical symptoms of other one being acute. For safety sake though, we will need to presume they are acute. Patient should be maintained on aspirin 81 mg daily along with Plavix 75 mg daily for least 3 months. He should have follow-up with outpatient neurology before that time though. The initial brief episode of posterior head pain and ear fullness does not sound like typical focal RURAL SOCIOLOGIST ischemia though, and I do not think it necessary to pursue that any further in the outpatient setting with cardiac rhythm monitoring, but that can be reconsidered if patient should have additional symptoms. Blood pressure is on the higher side, strongly recommended to be lowered before discharge, into the 130s/80s range. Needs optimal control of other vascular risk factors including statin if tolerated. Discussed with patient and the possible symptoms that could occur if 1 of these vascular lesions were active. They will return to the emergency room immediately for any new neurologic symptoms. Okay from my end to discharge with the above. History of Present Illness Reason for Consultation: Vertebral artery dissection Attending Physician: Sajan Monson MD History of Present Illness History comes patient and his who are good historians. Patient says 2 days ago, in the morning, he had a 30 to 40-minute self-limited spell of pain across the back of his head on both sides, and a sense of muffled hearing. Note suggest he had some dizziness, though he does not seem to recall that at pr esent. He had no focal weakness or numbness of arms legs or face. No visual disruption or slurred speech. The problem resolved fully after 40 minutes, and the patient went on with his day. Yesterday, he mentioned that he spell to his , who was concerned, insisted he come to the ER. The ER did CT angiogram which showed suspected dissection in the left internal carotid, and significant flow limitation in the left vertebral artery. Subsequently he was admitted. Denies any type of head or neck injury in recent weeks. No chiropractic manipulation, no motor vehicle accidents, no falls or other trauma. No protracted vomiting, no hard sneezing. Never had any symptoms similar to these before, but does get mild headaches a couple of times per month for which she takes Tylenol. Patient feels ready to go home. Allergies Allergy/AdvReac Type Severity Reaction Status Date / Time No Known Allergies Allergy Unverified 09/12/13 07:20 Home Medications Medication Instructions Recorded Confirmed Type ASCORBIC ACID 500 mg PO DAILY #0 tabs 09/12/13 History ASPIRIN (ASPIRIN EC) 81 mg PO DAILY ##0 09/12/13 09/29/22 History Atenolol (Tenormin) 50 mg PO DAILY #0 tabs 09/12/13 09/29/22 History CHOLECALCIFEROL (VITAMIN D 400 IU) 400 inter.unit PO DAILY #0 caps 09/12/13 History CYANOCOBALAMIN (VITAMIN B12 100 100 mcg PO DAILY #0 tabs 09/12/13 History MCG) Hydrocodon/Acetaminophen 5MG/300MG 1 - 2 tabs PO Q4H PRN Pain #30 tabs 09/12/13 Rx (VICODIN (5MG/300MG)) latanoprost 0.005 % eye drops 1 drp ophthalmic (eye) DAILY 09/29/22 09/29/22 History glaucoma lisinopril 10 mg tablet 10 mg PO DAILY 09/29/22 09/29/22 History Patient History Medical History (Updated 09/29/22 @ 15:04 by Richard Menendez MD) Basal cell carcinoma Cataract Facial swelling Kidney stone Periapical abscess Social History Smoking Status: Former smoker Hx Alcohol Use: No Hx Substance Use: No Preferred Language: Persian Communication Ability: Effective 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 Walks independently. Physical Exam Physical Exam: Awake, alert, attentive. Normal speech and language. Conversational and appropriate. No paraphasias. Attends both sides of space. Normal ocular movements. No nystagmus. No facial asymmetry. Tongue apparently symmetrically. No pronator drift. Strength excellent throughout. Fine finger movements and finger-nose testing done well. Gait steady and independent. Romberg negative. Carotid upstrokes and STA pulses are equal. Results & Data ([facility]) Vital Signs (Past 12 Hours) Vital Signs Temp Pulse Pulse Resp BP Pulse Ox O2 Del Method 09/30/22 11:47 36.7 C 61 18 176/91 H 96 Room Air 09/30/22 07:29 36.8 C 59 L 18 150/87 H 95 Room Air 09/30/22 06:08 56 L 09/30/22 05:13 36.7 C 57 L 12 156/82 H 97 Room Air
--- NOTE | 2022-09-30 20:28 | Discharge Summary ---
Date of Service September 30, 2022 Admission HPI Per Admitting Provider Zoran Negro is an 81-year-old male with a past medical history significant for hypertension, basal cell carcinoma, and nephrolithiasis who is presenting today after an episode of dizziness yesterday. Yesterday after standing up he felt a little lightheaded and "dizzy and woozy "with a mild headache and noticed that his hearing and vision seem to be diminished. This lasted for about 30 minutes befor resolving on its own. Vision was blurred in the both eyes, no black spots. No focal numbness or weakness, nausea, vomiting, or speech difficulties. Again, this resolved after 30 minutes and he is felt fine since yesterday's event is presenting today for further evaluation. Does not have a history of strokes, vision changes, headaches. Not taking any blood thinners, no recent falls. On presentation today he was initially hypertensive at 266 gradually, down since arrival without any interventions. He is bradycardic to 4050s. Head/Neck CTA showed occlusion of the proximal left vertebral artery with trace reconstitution and age-indeterminate short segment dissection of the distal left internal carotid artery and mild elevation of the left ICA measuring 6 mm liters at this level and 30% stenosis of the proximal right ICA and moderate plaque within the proximal right ICA. Case [facility] with [facility], recommending dual antiplatelet therapy and MRI for further assessment. Principal Diagnosis Internal carotid artery dissection Discharge Data Allergies Allergy/AdvReac Type Severity Reaction Status Date / Time No Known Allergies Allergy Unverified 09/12/13 07:20 Consultations 09/29/22 12:01 ED Decision to Admit Stat 09/30/22 10:28 Consult Neurology Routine Ordered Studies 09/29/22 08:25 CT angio head w con Stat CT angio neck with con Stat CT head/brain wo con Stat 09/29/22 14:55 MRI Angio Head [MR angio head wo con] Routine MRI Angio Neck [MR angio neck wo/w con] Routine MRI Brain [MR brain wo con] Routine Hospital Course (1) Internal carotid artery dissection: - 30-minute episode yesterday 09/28 of dizziness/lightheadedness and double vis ion and hearing loss, resolved without recurrence. -Head/neck CTA: Linear filling defect suggestive of a short segment age indeterminate dissection of the distal cervical left internal carotid artery. Associated mild dilatation of the distal cervical left ICA. Severe multifocal stenoses within the intracranial left vertebral artery and the left P2 segment. - Per [place] telestroke recommendations, will initiate DAPT with aspirin and Plavix, with loading dose of both today. 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 Took both this AM. Plan - Admit to PCU. - SCDs for VTE ppx. - Conditional Code-- NO artificial airway/intubation but agreeable to other standarda ACL protol to include CPR, defibrillation, pressors, medications for resuscitation Total Time Total Time Spent Total Time Spent (In Minutes): 45 Discharge Plan Discharge Items Patient Disposition: Home - Self-Care Reason For Visit: LT DISTAL ICA DISSECTION Discharge Diagnosis: LT DISTAL ICA DISSECTION Condition on Discharge: Good Activity: Resume your previous activity Lifting: Gradually increase as tolerated Bathing: No limitations Sexual Activity: When tolerated Exercise/Sports: Gradually increase as tolerated Driving/Machine Use: No limitations Weightbearing: Full weightbearing Non-emergency contact: Primary Care Provider and Neurologist Call non-emergency contact if: you have any medication questions and your symptoms worsen Follow-up/Referrals: Tito Rose MD [Physician] - PCP,NO [Primary Care Provider] - Diet: Heart Healthy Addtl Attending Provider Instructions: Please return to the ER if your symptoms recur immediately, please follow-up with the neurologist that you are provided with the contact information Pending Studies at Discharge: No Stand-Alone Forms: My [employer], Smoking Cessation Medications and DC Order Prescriptions: New clopidogrel 75 mg Tablet 75 mg PO QAM Qty: 21 0RF Continued ASCORBIC ACID 500 MG tablet 500 mg PO DAILY Qty: 0 ASPIRIN (ASPIRIN EC) 81 MG tablet 81 mg PO DAILY Qty: 0 Rx Instructions: took 2 baby aspirin 81 mg dose 12/25 AM Atenolol (Tenormin) 50 MG tablet 50 mg PO DAILY Qty: 0 CHOLECALCIFEROL (VITAMIN D 400 IU) 400 UNIT capsule 400 inter.unit PO DAILY Qty: 0 CYANOCOBALAMIN (VITAMIN B12 100 MCG) 100 MCG tablet 100 mcg PO DAILY Qty: 0 Hydrocodon/Acetaminophen 5MG/300MG (VICODIN (5MG/300MG)) 1 TAB tablet 1 - 2 tabs PO Q4H PRN (Reason: Pain) Qty: 30 0RF latanoprost 0.005 % drops 1 drp ophthalmic (eye) DAILY lisinopril 10 mg tablet 10 mg PO DAILY Discharge Orders: Discharge Order (Routine); Ordered 09/30/22 Ordered By: Sajan Monson Admission Data Admit Date/Time: 09/29/22 12:25 Attending Provider: Sajan Monson Admit Provider: Silvia Chun Primary Care Provider: PCP,NO Other Providers: Kostas Nguyen ; Tito Rose Other Interventions: Discharge Summary Assessment (RN) Last Done: 09/30/22 17:21 Coding Level of Care Code 25670 OBS Care - Discharge Diagnoses Internal carotid artery dissection I77.71 HTN (hypertension) I10
== END 2022-09-30 17:38 | disposition home or self-care (01) | DRG 301 ==
LOC: ED 08:03 → 2S 12:25 → SUATTDRO 12:25 → 2S 14:34